=== PATIENT | female | born 1980 | race Two or more races ===

== ENCOUNTER 2019-07-06 13:02 | Outpatient (CLI) | payer OTHER | END 2019-07-06 13:06 | disposition home or self-care (01) | LOC: MAMO-SONO 13:02 | DX: N60.11 Diffuse cystic mastopathy of right breast (principal); N60.12 Diffuse cystic mastopathy of left breast ==

== ENCOUNTER 2019-07-13 12:38 | Outpatient (CLI) | payer OTHER | END 2019-07-13 12:45 | disposition home or self-care (01) | LOC: SONOGRAMA 12:38 | DX: D24.2 Benign neoplasm of left breast (principal); N60.11 Diffuse cystic mastopathy of right breast; N60.12 Diffuse cystic mastopathy of left breast; N63.23 Unspecified lump in the left breast, lower outer quadrant; N63.11 Unspecified lump in the right breast, upper outer quadrant ==